=== PATIENT | male | born 1960 | race Two or more races ===

== ENCOUNTER 2024-01-25 00:22 | Inpatient (IN) | payer MEDICARE, MEDICAID ==
[~2024-01-25] VITALS: Ht 152.4 cm; Wt 77.1 kg
[2024-01-25] VITALS (19 sets, daily range): BP systolic 139–171; BP diastolic 82–111; PULSE 61–83; RESP 12–35; TEMP 36.3918–36.78072; O2SAT 94–100
[2024-01-25 01:33] LABS: BASOPHILS % 0.8 % (0.0-2.0); EOSINOPHILS % 1.7 % (0.0-5.0); HEMATOCRIT. 25.9 % (42.0-52.0); HEMOGLOBIN. 8.8 g/dL (14.0-18.0); LYMPHOCYTES % 28.4 % (20.0-50.0); MEAN CORPUSCULAR HEMOGLOBIN 32.5 pg (28.0-32.0); MEAN CORPUSCULAR HGB CONC 34.2 g/dL (31.0-37.0); MEAN PLATELET VOLUME 7.7 fl (7.4-10.4); MONOCYTES % 8.2 % (2.0-8.0); NEUTROPHILS % 60.9 % (40.0-76.0); PLATELET 126 x1000/uL (130-400); RED BLOOD CELL COUNT 2.72 mill/uL (4.7-6.1); RED CELL DISTRIBUTION WIDTH 14.4 % (11.6-14.6)
[2024-01-25 01:59] LABS: CARBON DIOXIDE 29 mEq/L (21-32); CHLORIDE 104 mEq/L (98-107); POTASSIUM 5.1 mEq/L (3.5-5.1); SODIUM 139 mEq/L (136-145)
[2024-01-25 02:00] LABS: CALCIUM 8.9 mg/dL (8.7-10.4)
[2024-01-25 02:05] LABS: GLUCOSE 92 mg/dL (70-105); UREA NITROGEN BLOOD 60 mg/dL (9-23)
[2024-01-25 02:06] LABS: TROPONIN I HIGH SENSITIVITY 44 ng/L (3.0-53)
[2024-01-25 02:16] LABS: CREATININE 12.2 mg/dL (0.6-1.3)
[2024-01-25] MEDS: ACETAMINOPHEN 325MG TABLET PO ONE (02:45)
[2024-01-25] MEDS: ONDANSETRON HCL 4MG/2ML INJ IV NR (02:50)
[2024-01-25] MEDS: LABETALOL 5MG/ML 4ML INJ IV NR (02:50)
[2024-01-25 03:05] LABS: TROPONIN I HIGH SENSITIVITY 45 ng/L (3.0-53)
[2024-01-25] MEDS ORDERED: ACETAMINOPHEN 325MG TABLET PO PRN (05:30)
[2024-01-25] MEDS ORDERED: DEXTROSE 50% WATER 50ML SYRINGE IV PRN (05:30)
[2024-01-25] MEDS ORDERED: IPRATROPIUM/ALBUTEROL 0.5-3(2.5)MG/3ML NEB HHN PRN (05:30)
[2024-01-25] MEDS ORDERED: LORAZEPAM 1MG TABLET PO PRN (05:45)
[2024-01-25] MEDS ORDERED: ETRAVIRINE 200 MG XX SCH (05:45)
[2024-01-25] MEDS: BLOOD SUGAR DIAGNOSTIC STRIP TEST SCH (07:58)
[2024-01-25] MEDS: INSULIN LISPRO 100 UNITS/ML SUBCUT SCH (08:00)
[2024-01-25] MEDS: SEVELAMER CARBONATE 800 MG TABLET PO SCH (08:22)
[2024-01-25] MEDS: HYDRALAZINE HCL 100MG TABLET PO SCH (09:00)
[2024-01-25] MEDS: ENOXAPARIN 30MG/0.3ML SYR SUBCUT SCH (09:00)
[2024-01-25] MEDS: IPRATROPIUM/ALBUTEROL 0.5-3(2.5)MG/3ML NEB HHN SCH (09:21)
[2024-01-25] MEDS: FUROSEMIDE 40MG/4ML VIAL IVP SCH (10:07)
[2024-01-25] MEDS: DIVALPROEX SODIUM 125MG SPRINKLE CAPSULE PO SCH (10:08)
[2024-01-25] MEDS: GABAPENTIN 300MG CAPSULE PO SCH (10:08)
[2024-01-25] MEDS: PAROXETINE HCL 10MG TABLET PO SCH (10:08)
[2024-01-25 10:59] LABS: IRON 28 ug/dL (65-175); TROPONIN I HIGH SENSITIVITY 41 ng/L (3.0-53)
[2024-01-25 11:00] LABS: LDL CHOLESTEROL 61 mg/dL (5-100); TRIGLYCERIDE 34 mg/dL (0-150)
[2024-01-25 11:01] LABS: ALBUMIN 3.6 g/dL (3.2-4.8)
[2024-01-25 11:02] LABS: CHOLESTEROL 174 mg/dL (<200); HDL CHOLESTEROL 87 mg/dL (>55); PHOSPHORUS 5.3 mg/dL (2.5-4.9); TOTAL IRON BINDING CAPACITY 221 ug/dl (250-425)
[2024-01-25 11:03] LABS: T4 FREE 1.18 ng/dL (0.89-1.76); THYROID STIMULATING HORMONE 1.44 uIU/mL (0.55-4.78)
[2024-01-25 11:33] LABS: BG BASE EXCESS -0.6 mmol/L (-2.0-3.0); BG CARBOXYHEMOGLOBIN 0.8 % (0.5-1.5); BG DEOXYHEMOGLOBIN 4.3 % (0.0-5.0); BG FRACTION INSPIRED OXYGEN 21; BG HCO3 ACT 23.9 mmol/L (21.0-28.0); BG METHEMOGLOBIN 0.3 % (0.5-1.5); BG OXYGEN SATURATION 95.7 % (94.0-98.0); BG OXYHEMOGLOBIN 94.6 % (94.0-98.0); BG PH 7.406 (7.350-7.450); BG SAMPLE SITE RIGHT RADIAL; BG TOTAL HEMOGLOBIN 9.1 g/dL (13.5-17.5); BG VENT MODE ROOM AIR
[2024-01-25 11:37] LABS: FOLIC ACID (FOLATE) SERUM 8.77 ng/mL (>5.38)
[2024-01-25 11:38] LABS: FERRITIN 536 ng/mL (22-322); VITAMIN B12 SERUM 641 pg/mL (211-911)
[2024-01-25 11:49] LABS: HEPATITIS B SURFACE ANTIGEN NEGATIVE (Negative)
[2024-01-25 11:51] LABS: HEPATITIS B SURFACE ANTIGEN NEGATIVE (Negative)
[2024-01-25 12:09] LABS: HEPATITIS A AB IGM NEGATIVE (Negative)
[2024-01-25 12:10] LABS: HEPATITIS B CORE AB IGM REACTIVE (Negative); HEPATITIS C AB NON REACTIVE (Neg) (Negative)
[2024-01-25 12:12] LABS: HEPATITIS C AB NON REACTIVE (Neg) (Negative)
[2024-01-25] MEDS: GUAIFENESIN 200MG/10ML SUGAR FREE UDC PO PRN (13:29)
[2024-01-25 16:57] LABS: CREATINE KINASE MB FRACTION 2.4 ng/mL (0.5-3.6)
[2024-01-25] MEDS: AZITHROMYCIN 500 MG in SODIUM CHLORIDE 0.9% 250 ML IV SCH (18:44)
[2024-01-25 21:04] LABS: CLARITY URINE TURBID (CLEAR); COLOR URINE RED (YELLOW); GLUCOSE URINE NEGATIVE (NEGATIVE); KETONES URINE NEGATIVE (NEGATIVE); LEUKOCYTE ESTERASE URINE 3+ (NEGATIVE); NITRITE URINE NEGATIVE (NEGATIVE); OCCULT BLOOD URINE 3+ (NEGATIVE); PH URINE >=9.0 (4.5-8.0); PROTEIN URINE 3+ (NEGATIVE); SPECIFIC GRAVITY URINE 1.011 (1.005-1.030); UROBILINOGEN URINE 0.2 E.U./dL (0.2-1.0)
[2024-01-25 21:16] LABS: RBC URINE TNTC /hpf (0-2); WBC URINE 15-25 /hpf (0-2)
[2024-01-25 21:17] LABS: BACTERIA URINE TRACE; SQUAMOUS EPITHELIAL CELL URINE FEW /lpf (RARE/1+)
[2024-01-25 21:22] LABS: *AMPHETAMINES SCREEN URINE NEGATIVE (NEGATIVE); *BARBITURATES SCREEN URINE NEGATIVE (NEGATIVE); *BENZODIAZEPINES SCREEN URINE NEGATIVE (NEGATIVE); *COCAINE SCREEN URINE NEGATIVE (NEGATIVE)
[2024-01-25 21:23] LABS: CANNABINOID URINE SCREEN NEGATIVE (NEGATIVE); ECSTASY MDMA SCREEN URINE NEGATIVE (NEGATIVE); METHADONE URINE SCREEN NEGATIVE (NEGATIVE); OPIATES URINE SCREEN NEGATIVE (NEGATIVE); PHENCYCLIDINE URINE SCREEN NEGATIVE (NEGATIVE)
[2024-01-26] VITALS (13 sets, daily range): BP systolic 126–167; BP diastolic 66–111; PULSE 76–96; RESP 14–28; TEMP 36.28068–37.05852; O2SAT 97–100
[2024-01-26 06:33] LABS: HEMATOCRIT 26.7 % (42.0-52.0); HEMOGLOBIN 8.9 g/dL (14.0-18.0); MEAN CORPUSCULAR HEMOGLOBIN 31.4 pg (28.0-32.0); MEAN CORPUSCULAR HGB CONC 33.3 g/dL (31.0-37.0); MEAN CORPUSCULAR VOLUME 94.4 fL (80.0-94.0); PLATELET 105 x1000/uL (130-400); RED BLOOD CELL COUNT 2.83 mill/uL (4.7-6.1); RED CELL DISTRIBUTION WIDTH 14.5 % (11.6-14.6); WHITE BLOOD COUNT 2.7 x1000/uL (4.5-11.0)
[2024-01-26 07:17] LABS: CHLORIDE 103 mEq/L (98-107); POTASSIUM 4.6 mEq/L (3.5-5.1); SODIUM 142 mEq/L (136-145)
[2024-01-26 07:19] LABS: CALCIUM 8.8 mg/dL (8.7-10.4); CARBON DIOXIDE 24 mEq/L (21-32)
[2024-01-26 07:24] LABS: GLUCOSE 97 mg/dL (70-105); UREA NITROGEN BLOOD 54 mg/dL (9-23)
[2024-01-26 07:25] LABS: ALANINE AMINOTRANSFERASE 14 IU/L (10-49)
[2024-01-26 07:26] LABS: ALBUMIN 3.8 g/dL (3.2-4.8); ASPARTATE AMINOTRANSFERASE 26 IU/L (<34); BILIRUBIN TOTAL 0.3 mg/dL (0.1-1.0); PHOSPHORUS 4.3 mg/dL (2.5-4.9); PROTEIN TOTAL 6.8 g/dL (6.0-8.3)
[2024-01-26 08:17] LABS: CREATININE 11.4 mg/dL (0.6-1.3)
[2024-01-26] MEDS: LAMIVUDINE 100 MG TABLET PO SCH (08:23)
[2024-01-26] MEDS: ETRAVIRINE 200 MG PO SCH (08:25)
[2024-01-26] MEDS: CLONIDINE 0.1MG TABLET PO PRN (19:21)
[2024-01-26] MEDS: RALTEGRAVIR 400 MG TABLET PO SCH (20:29)
[2024-01-26] MEDS: SILDENAFIL CITRATE 20MG TABLET PO SCH (20:52)
[2024-01-26] MEDS: METHYLPREDNISOLONE SOD SUCC 125MG/2ML (ACT-O-VIAL) IV NR (21:35)
[2024-01-26] MEDS: FUROSEMIDE 100MG/10ML VIAL IVP NR (21:36)
[2024-01-26 23:54] LABS: BG BASE EXCESS -1.2 mmol/L (-2.0-3.0); BG CARBOXYHEMOGLOBIN 0.4 % (0.5-1.5); BG DEOXYHEMOGLOBIN 0.9 % (0.0-5.0); BG FRACTION INSPIRED OXYGEN 35; BG HCO3 ACT 22.8 mmol/L (21.0-28.0); BG METHEMOGLOBIN 0.3 % (0.5-1.5); BG OXYGEN SATURATION 99.1 % (94.0-98.0); BG OXYHEMOGLOBIN 98.4 % (94.0-98.0); BG PH 7.431 (7.350-7.450); BG PO2 164.2 mmHg (83.0-108.0); BG SAMPLE SITE RIGHT RADIAL; BG TOTAL HEMOGLOBIN 9.1 g/dL (13.5-17.5); BG VENT MODE MASK - BIPAP
[2024-01-27] VITALS (25 sets, daily range): BP systolic 99–149; BP diastolic 58–97; PULSE 77–101; RESP 13–29; TEMP 36.00288–36.83628; O2SAT 10–100
[2024-01-27 08:33] LABS: CARBON DIOXIDE 22 mEq/L (21-32); CHLORIDE 101 mEq/L (98-107); SODIUM 137 mEq/L (136-145)
[2024-01-27 08:39] LABS: GLUCOSE 192 mg/dL (70-105); UREA NITROGEN BLOOD 73 mg/dL (9-23)
[2024-01-27 08:46] LABS: CREATININE 13.2 mg/dL (0.6-1.3); POTASSIUM 6.3 mEq/L (3.5-5.1)
[2024-01-27 08:55] LABS: BASOPHILS % 0.2 % (0.0-2.0); EOSINOPHILS % 0.1 % (0.0-5.0); HEMATOCRIT 26.2 % (42.0-52.0); HEMATOCRIT. 26.2 % (42.0-52.0); HEMOGLOBIN 8.7 g/dL (14.0-18.0); HEMOGLOBIN. 8.7 g/dL (14.0-18.0); LYMPHOCYTES % 13.1 % (20.0-50.0); MEAN CORPUSCULAR HEMOGLOBIN 31.4 pg (28.0-32.0); MEAN CORPUSCULAR HGB CONC 33.2 g/dL (31.0-37.0); MEAN CORPUSCULAR VOLUME 94.7 fL (80.0-94.0); MEAN PLATELET VOLUME 8.5 fl (7.4-10.4); MONOCYTES % 1.5 % (2.0-8.0); NEUTROPHILS % 85.1 % (40.0-76.0); PLATELET 108 x1000/uL (130-400); RED BLOOD CELL COUNT 2.77 mill/uL (4.7-6.1); RED CELL DISTRIBUTION WIDTH 14.4 % (11.6-14.6); WHITE BLOOD COUNT 2.1 x1000/uL (4.5-11.0)
[2024-01-27] MEDS ORDERED: DEXTROSE 50% WATER 50ML SYRINGE IV NR (10:23)
[2024-01-27] MEDS ORDERED: INSULIN REGULAR (HUMULIN R) 1000UNITS/10ML VIAL IV NR (10:23)
[2024-01-27] MEDS ORDERED: SODIUM BICARBONATE 8.4% 50MEQ/50ML SYR IV NR (10:23)
[2024-01-27] MEDS ORDERED: SODIUM ZIRCONIUM CYCLOSILICATE 10GM/PACKET PO NR (10:30)
[2024-01-27 16:18] LABS: POTASSIUM 4.7 mEq/L (3.5-5.1)
[2024-01-27] MEDS: SEVELAMER CARBONATE 800 MG TABLET PO SCH (21:43)
[2024-01-27] MEDS: ACETAMINOPHEN 325MG TABLET PO PRN (22:24)
[2024-01-28] VITALS (17 sets, daily range): BP systolic 121–155; BP diastolic 74–95; PULSE 82–101; RESP 13–20; TEMP 36.28068–36.6696; O2SAT 94–99
[2024-01-28 06:01] LABS: CHLORIDE 104 mEq/L (98-107); POTASSIUM 4.8 mEq/L (3.5-5.1); SODIUM 140 mEq/L (136-145)
[2024-01-28 06:02] LABS: CARBON DIOXIDE 25 mEq/L (21-32)
[2024-01-28 06:07] LABS: GLUCOSE 86 mg/dL (70-105)
[2024-01-28 06:08] LABS: UREA NITROGEN BLOOD 63 mg/dL (9-23)
[2024-01-28 06:10] LABS: PHOSPHORUS 5.1 mg/dL (2.5-4.9)
[2024-01-28 06:16] LABS: HEMOGLOBIN 8.4 g/dL (14.0-18.0); MEAN CORPUSCULAR HEMOGLOBIN 30.8 pg (28.0-32.0); MEAN CORPUSCULAR HGB CONC 32.2 g/dL (31.0-37.0); MEAN CORPUSCULAR VOLUME 95.7 fL (80.0-94.0); PLATELET 110 x1000/uL (130-400); RED BLOOD CELL COUNT 2.72 mill/uL (4.7-6.1); RED CELL DISTRIBUTION WIDTH 14.5 % (11.6-14.6); WHITE BLOOD COUNT 3.5 x1000/uL (4.5-11.0)
[2024-01-28 06:20] LABS: CREATININE 11.6 mg/dL (0.6-1.3)
[2024-01-28 09:10] LABS: ABSOLUTE LYMPHOCYTES 0.3 x10E3/uL (0.7-3.1); ABSOLUTE NEUTROPHILS 1.8 x10E3/uL (1.4-7.0); BASOPHILS 1 % (Not Estab.); EOSINOPHILS 0 % (Not Estab.); HEMATOCRIT 26.2 % (37.5-51.0); HEMOGLOBIN 8.5 g/dL (13.0-17.7); IMMATURE GRANULOCYTES 0 % (Not Estab.); LYMPHOCYTES 15 % (Not Estab.); MEAN CORPUSCULAR HEMOGLOBIN 30.5 pg (26.6-33.0); MEAN CORPUSCULAR HGB CONC. 32.4 g/dL (31.5-35.7); MEAN CORPUSCULAR VOLUME 94 fL (79-97); MONOCYTES 2 % (Not Estab.); NEUTROPHILS 82 % (Not Estab.); PLATELETS 111 x10E3/uL (150-450); RBC 2.79 x10E6/uL (4.14-5.80); RED CELL DISTRIBUTION WIDTH 13.1 % (11.6-15.4); WBC 2.2 x10E3/uL (3.4-10.8)
[2024-01-28] MEDS: CEFTRIAXONE 1GM/50ML 50 ML IV SCH (10:36)
[2024-01-28] MEDS: DOCUSATE SODIUM 100MG CAPSULE PO PRN (12:43)
[2024-01-28 13:06] LABS: % CD 3 POS. LYMPHOCYTES 43.9 % (57.5-86.2); % CD 4 POS. LYMPHOCYTES 25.4 % (30.8-58.5); % CD 8 POS. LYMPH 18.1 % (12.0-35.5); ABSOLUTE CD 3 132 /uL (622-2402); ABSOLUTE CD 4 HELPER 76 /uL (359-1519); ABSOLUTE CD 8 SUPPRESSOR 54 /uL (109-897)
[2024-01-28] MEDS ORDERED: SILDENAFIL CITRATE 20MG TABLET PO SCH (14:00)
[2024-01-28] MEDS: LOSARTAN 25 MG TABLET PO SCH (15:40)
[2024-01-28 21:12] LABS: CLARITY URINE TURBID (CLEAR); COLOR URINE RED (YELLOW); GLUCOSE URINE NEGATIVE (NEGATIVE); KETONES URINE NEGATIVE (NEGATIVE); LEUKOCYTE ESTERASE URINE 2+ (NEGATIVE); NITRITE URINE NEGATIVE (NEGATIVE); OCCULT BLOOD URINE 3+ (NEGATIVE); PROTEIN URINE 3+ (NEGATIVE); SPECIFIC GRAVITY URINE 1.014 (1.005-1.030); UROBILINOGEN URINE 0.2 E.U./dL (0.2-1.0)
[2024-01-28 21:17] LABS: BACTERIA URINE 1+; RBC URINE TNTC /hpf (0-2); SQUAMOUS EPITHELIAL CELL URINE FEW /lpf (RARE/1+)
[2024-01-28] MEDS: AZITHROMYCIN 500 MG TABLET PO SCH (21:37)
[2024-01-28] MEDS: CARVEDILOL 3.125 MG TABLET PO SCH (21:37)
[2024-01-29] VITALS (27 sets, daily range): BP systolic 107–151; BP diastolic 73–115; PULSE 69–98; RESP 12–22; TEMP 35.78064–37.11408; O2SAT 95–99
[2024-01-29 06:13] LABS: POTASSIUM 5.7 mEq/L (3.5-5.1)
[2024-01-29 06:14] LABS: CALCIUM 9.1 mg/dL (8.7-10.4)
[2024-01-29 06:39] LABS: CREATININE 12.3 mg/dL (0.6-1.3)
[2024-01-29 07:20] LABS: HEMATOCRIT 28.6 % (42.0-52.0); HEMOGLOBIN 9.5 g/dL (14.0-18.0); MEAN CORPUSCULAR HEMOGLOBIN 31.7 pg (28.0-32.0); MEAN CORPUSCULAR HGB CONC 33.3 g/dL (31.0-37.0); MEAN CORPUSCULAR VOLUME 95.3 fL (80.0-94.0); PLATELET 108 x1000/uL (130-400); RED CELL DISTRIBUTION WIDTH 14.4 % (11.6-14.6)
[2024-01-29 10:24] LABS: BG BASE EXCESS -2.6 mmol/L (-2.0-3.0); BG CARBOXYHEMOGLOBIN 0.6 % (0.5-1.5); BG DEOXYHEMOGLOBIN 1.2 % (0.0-5.0); BG FRACTION INSPIRED OXYGEN 30; BG HCO3 ACT 21.9 mmol/L (21.0-28.0); BG METHEMOGLOBIN 0.3 % (0.5-1.5); BG OXYGEN SATURATION 98.8 % (94.0-98.0); BG OXYHEMOGLOBIN 97.9 % (94.0-98.0); BG PCO2 36.1 mmHg (35.0-48.0); BG PO2 142.9 mmHg (83.0-108.0); BG SAMPLE SITE RIGHT RADIAL; BG TOTAL HEMOGLOBIN 8.8 g/dL (13.5-17.5); BG VENT MODE MASK - BIPAP
[2024-01-29] MEDS: SODIUM ZIRCONIUM CYCLOSILICATE 10GM/PACKET PO NR (11:20)
[2024-01-29] MEDS: AZITHROMYCIN 500 MG TABLET PO SCH (19:03)
[2024-01-30] VITALS (22 sets, daily range): BP systolic 98–158; BP diastolic 72–97; PULSE 67–97; RESP 11–26; TEMP 36.28068–36.72516; O2SAT 91–98
[2024-01-30 06:09] LABS: POTASSIUM 5.8 mEq/L (3.5-5.1)
[2024-01-30 06:10] LABS: CALCIUM 8.5 mg/dL (8.7-10.4)
[2024-01-30 06:18] LABS: PHOSPHORUS 5.6 mg/dL (2.5-4.9)
[2024-01-30 06:19] LABS: HEMOGLOBIN 8.4 g/dL (14.0-18.0); MEAN CORPUSCULAR HEMOGLOBIN 30.7 pg (28.0-32.0); MEAN CORPUSCULAR HGB CONC 32.4 g/dL (31.0-37.0); MEAN CORPUSCULAR VOLUME 94.7 fL (80.0-94.0); PLATELET 104 x1000/uL (130-400); RED BLOOD CELL COUNT 2.75 mill/uL (4.7-6.1); RED CELL DISTRIBUTION WIDTH 14.1 % (11.6-14.6); WHITE BLOOD COUNT 2.6 x1000/uL (4.5-11.0)
[2024-01-30 06:32] LABS: CREATININE 9.5 mg/dL (0.6-1.3)
[2024-01-30] MEDS: ONDANSETRON HCL 4MG/2ML INJ IV PRN (07:30)
[2024-01-30] MEDS: FUROSEMIDE 40MG TABLET PO SCH (08:41)
[2024-01-30] MEDS: ATOVAQUONE 750 MG/5 ML UDC PO SCH (08:44)
[2024-01-30] MEDS: SODIUM ZIRCONIUM CYCLOSILICATE 10GM/PACKET PO NR (10:11)
[2024-01-30] MEDS: GABAPENTIN 300MG CAPSULE PO NR (10:12)
[2024-01-30] MEDS: ALBUTEROL (0.083%) 2.5MG/3ML NEB HHN NR (10:45)
[2024-01-30 22:07] LABS: POTASSIUM 4.6 mEq/L (3.5-5.1)
[2024-01-30 22:09] LABS: CALCIUM 8.6 mg/dL (8.7-10.4)
[2024-01-30 22:16] LABS: CREATININE 8.2 mg/dL (0.6-1.3)
[2024-01-31] VITALS (11 sets, daily range): BP systolic 131–174; BP diastolic 66–96; PULSE 65–82; RESP 12–24; TEMP 36.44736–37.00296; O2SAT 93–100
[2024-01-31] MEDS ORDERED: DIPHENHYDRAMINE 50MG CAPSULE PO NR
[2024-01-31] MEDS: DIPHENHYDRAMINE 25MG CAPSULE PO NR (00:23)
[2024-01-31 07:35] LABS: HEMATOCRIT 25.2 % (42.0-52.0); HEMOGLOBIN 8.3 g/dL (14.0-18.0); MEAN CORPUSCULAR HEMOGLOBIN 30.9 pg (28.0-32.0); MEAN CORPUSCULAR VOLUME 93.6 fL (80.0-94.0); PLATELET 93 x1000/uL (130-400); RED BLOOD CELL COUNT 2.69 mill/uL (4.7-6.1); RED CELL DISTRIBUTION WIDTH 13.6 % (11.6-14.6); WHITE BLOOD COUNT 2.7 x1000/uL (4.5-11.0)
[2024-01-31 07:44] LABS: POTASSIUM 4.5 mEq/L (3.5-5.1)
[2024-01-31 07:45] LABS: CALCIUM 8.8 mg/dL (8.7-10.4)
[2024-01-31] MEDS: LOSARTAN 100 MG TABLET PO SCH (08:00)
[2024-01-31 08:04] LABS: PROTHROMBIN TIME 10.9 sec (9.6-11.0)
[2024-01-31] MEDS ORDERED: LIDOCAINE HCL 1% 10 MG/ML 10ML VIAL ONE (10:16)
[2024-01-31] MEDS ORDERED: IODIXANOL 320MG/ML 100 ML BOTTLE IV ONE (10:16)
[2024-01-31] MEDS ORDERED: HEPARIN 1000 UNITS/ML 10ML ONE (10:16)
[2024-01-31] MEDS ORDERED: FENTANYL CITRATE/PF 50MCG/ML 2ML VIAL ONE (10:39)
[2024-01-31] MEDS ORDERED: MIDAZOLAM HCL 2 MG/2 ML VIAL ONE (10:39)
[2024-01-31] MEDS ORDERED: ATROPINE SULFATE 1MG/10ML SYR IV PRN (12:00)
[2024-01-31] MEDS ORDERED: HYDR100T11 PO (12:27)
[2024-01-31] MEDS ORDERED: FURO80TA87 PO (12:27)
[2024-01-31] MEDS ORDERED: PARO10TA74 PO (12:27)
[2024-01-31] MEDS ORDERED: COR3 PO (12:27)
[2024-01-31] MEDS ORDERED: LOSA100T33 PO (12:27)
[2024-01-31] MEDS: METHYLPREDNISOLONE SOD SUCC 125MG/2ML (ACT-O-VIAL) IV NR (16:24)
[2024-02-01] VITALS (16 sets, daily range): BP systolic 145–188; BP diastolic 74–98; PULSE 65–82; RESP 12–20; TEMP 36.16956–36.6696; O2SAT 96–100
[2024-02-01] MEDS ORDERED: SILD20TA13 PO (12:44)
[2024-02-01 16:40] LABS: BASOPHILS % 0.8 % (0.0-2.0); EOSINOPHILS % 2.5 % (0.0-5.0); HEMATOCRIT. 25.6 % (42.0-52.0); HEMOGLOBIN. 8.5 g/dL (14.0-18.0); LYMPHOCYTES % 32.1 % (20.0-50.0); MEAN CORPUSCULAR HEMOGLOBIN 31.1 pg (28.0-32.0); MEAN CORPUSCULAR HGB CONC 33.4 g/dL (31.0-37.0); MEAN CORPUSCULAR VOLUME 93.1 fL (80.0-94.0); MEAN PLATELET VOLUME 8.4 fl (7.4-10.4); MONOCYTES % 8.3 % (2.0-8.0); NEUTROPHILS % 56.3 % (40.0-76.0); PLATELET 97 x1000/uL (130-400); RED BLOOD CELL COUNT 2.75 mill/uL (4.7-6.1); RED CELL DISTRIBUTION WIDTH 13.7 % (11.6-14.6); WHITE BLOOD COUNT 2.7 x1000/uL (4.5-11.0)
[2024-02-01 16:46] LABS: POTASSIUM 3.9 mEq/L (3.5-5.1)
[2024-02-01 16:48] LABS: CALCIUM 8.7 mg/dL (8.7-10.4)
[2024-02-01 17:07] LABS: CREATININE 7.4 mg/dL (0.6-1.3)
== END 2024-02-01 19:30 | disposition home or self-care (01) | DRG 286 ==
LOC: ER 00:22 → 5EST 03:21 → 7EST 01-26 16:30 → 5EST 01-27 01:42
PROVIDERS: ADMIT Internal Medicine; ATTEND Internal Medicine
PROC: 5A09357 Assistance with Respiratory Ventilation, Less than 24 Consecutive Hours, Continuous Positive Airway Pressure (ICD-10-PCS; principal; 2024-01-25)
PROC: 5A1D70Z Performance of Urinary Filtration, Intermittent, Less than 6 Hours Per Day (ICD-10-PCS; 2024-01-25)
PROC: 5A09357 Assistance with Respiratory Ventilation, Less than 24 Consecutive Hours, Continuous Positive Airway Pressure (ICD-10-PCS; 2024-01-26)
PROC: 5A09357 Assistance with Respiratory Ventilation, Less than 24 Consecutive Hours, Continuous Positive Airway Pressure (ICD-10-PCS; 2024-01-27)
PROC: 5A1D70Z Performance of Urinary Filtration, Intermittent, Less than 6 Hours Per Day (ICD-10-PCS; 2024-01-27)
PROC: 5A09357 Assistance with Respiratory Ventilation, Less than 24 Consecutive Hours, Continuous Positive Airway Pressure (ICD-10-PCS; 2024-01-29)
PROC: 5A1D70Z Performance of Urinary Filtration, Intermittent, Less than 6 Hours Per Day (ICD-10-PCS; 2024-01-29)
PROC: 5A0935A Assistance with Respiratory Ventilation, Less than 24 Consecutive Hours, High Flow/Velocity Cannula (ICD-10-PCS; 2024-01-30)
PROC: 5A1D70Z Performance of Urinary Filtration, Intermittent, Less than 6 Hours Per Day (ICD-10-PCS; 2024-01-30)
PROC: 4A023N7 Measurement of Cardiac Sampling and Pressure, Left Heart, Percutaneous Approach (ICD-10-PCS; 2024-01-31)
PROC: B2111ZZ Fluoroscopy of Multiple Coronary Arteries using Low Osmolar Contrast (ICD-10-PCS; 2024-01-31)
PROC: B2151ZZ Fluoroscopy of Left Heart using Low Osmolar Contrast (ICD-10-PCS; 2024-01-31)
PROC: 5A09357 Assistance with Respiratory Ventilation, Less than 24 Consecutive Hours, Continuous Positive Airway Pressure (ICD-10-PCS; 2024-01-31)
PROC: 5A1D70Z Performance of Urinary Filtration, Intermittent, Less than 6 Hours Per Day (ICD-10-PCS; 2024-02-01)
DX: I13.2 Hypertensive heart and chronic kidney disease with heart failure and with stage 5 chronic kidney disease, or end stage renal disease (principal); I50.21 Acute systolic (congestive) heart failure; J96.01 Acute respiratory failure with hypoxia; N18.6 End stage renal disease; B20 Human immunodeficiency virus [HIV] disease; N39.0 Urinary tract infection, site not specified; B19.10 Unspecified viral hepatitis B without hepatic coma; J90 Pleural effusion, not elsewhere classified; I42.9 Cardiomyopathy, unspecified; G40.909 Epilepsy, unspecified, not intractable, without status epilepticus; E87.5 Hyperkalemia; I27.20 Pulmonary hypertension, unspecified; K76.0 Fatty (change of) liver, not elsewhere classified; E87.70 Fluid overload, unspecified; D64.9 Anemia, unspecified; G62.9 Polyneuropathy, unspecified; F17.200 Nicotine dependence, unspecified, uncomplicated; Z88.5 Allergy status to narcotic agent; Z99.2 Dependence on renal dialysis; Z91.158 Patient's noncompliance with renal dialysis for other reason; Z79.899 Other long term (current) drug therapy
CPT/HCPCS: 36415; 36600; 71045; 76705; 80048; 80053; 80061; 80305; 81003; 82040; 82375; 82553; 82607; 82728; 82746; 82805; 82962; 83036; 83540; 83550; 83605; 83735; 83880; 84100; 84132; 84145; 84439; 84443; 84484; 85025; 85027; 85379; 86359; 86360; 86705; 86706; 86709; 87340; 87517; 90935; 93005; 93306; 93458; 93970; 94070; 94618; 94640; 94660; 97162; 97166; 98960; 99285; C1769; C1887; C1893; J0456; J0696; J1644; J1650; J1815; J1940; J2250; J2405; J2919; J3010; J3490; J7050; Q0163; Q9967

== ENCOUNTER 2024-02-28 02:38 | Inpatient (IN) | payer MEDICARE, MEDICAID ==
[~2024-02-28] VITALS: Ht 172.7 cm; Wt 68.5 kg
[2024-02-28] VITALS (12 sets, daily range): BP systolic 127–156; BP diastolic 62–98; PULSE 48–98; RESP 14–20; TEMP 36.3918–36.78072; O2SAT 98–100
[~2024-02-28 02:38] MED LIST: COR3 PO; FURO80TA87 PO; HYDR100T11 PO; LOSA100T33 PO; PARO10TA74 PO; SILD20TA13 PO
[2024-02-28 03:50] LABS: EOSINOPHILS % 1.8 % (0.0-5.0); HEMATOCRIT. 28.6 % (42.0-52.0); HEMOGLOBIN. 9.5 g/dL (14.0-18.0); LYMPHOCYTES % 22.2 % (20.0-50.0); MEAN CORPUSCULAR HEMOGLOBIN 31.6 pg (28.0-32.0); MEAN CORPUSCULAR HGB CONC 33.3 g/dL (31.0-37.0); MEAN CORPUSCULAR VOLUME 94.9 fL (80.0-94.0); MEAN PLATELET VOLUME 9.4 fl (7.4-10.4); MONOCYTES % 6.2 % (2.0-8.0); NEUTROPHILS % 68.8 % (40.0-76.0); PLATELET 103 x1000/uL (130-400); RED BLOOD CELL COUNT 3.01 mill/uL (4.7-6.1); RED CELL DISTRIBUTION WIDTH 16.1 % (11.6-14.6); WHITE BLOOD COUNT 4.9 x1000/uL (4.5-11.0)
[2024-02-28 03:57] LABS: CHLORIDE 105 mEq/L (98-107); POTASSIUM 6.1 mEq/L (3.5-5.1); SODIUM 141 mEq/L (136-145)
[2024-02-28 03:58] LABS: CALCIUM 8.5 mg/dL (8.7-10.4); CARBON DIOXIDE 21 mEq/L (21-32)
[2024-02-28 04:03] LABS: GLUCOSE 95 mg/dL (70-105); UREA NITROGEN BLOOD 90 mg/dL (9-23)
[2024-02-28 04:07] LABS: TROPONIN I HIGH SENSITIVITY 25 ng/L (3.0-53)
[2024-02-28 04:15] LABS: CREATININE 15.7 mg/dL (0.6-1.3)
[2024-02-28 04:16] LABS: ETHANOL BLOOD < 10 mg/dL (<10)
[2024-02-28] MEDS ORDERED: ACETAMINOPHEN 325MG TABLET PO PRN (04:30)
[2024-02-28] MEDS ORDERED: ONDANSETRON HCL 4MG/2ML INJ IV PRN (04:30)
[2024-02-28] MEDS ORDERED: MAGNESIUM/ALUMINUM HYDROXIDE/SIMETHICONE 30ML UDC PO PRN (04:30)
[2024-02-28] MEDS ORDERED: DOCUSATE SODIUM 100MG CAPSULE PO PRN (04:30)
[2024-02-28] MEDS: SODIUM BICARBONATE 8.4% 50MEQ/50ML SYR IV ONE (04:31)
[2024-02-28] MEDS: DEXTROSE 50% WATER 50ML SYRINGE IV ONE (04:31)
[2024-02-28] MEDS: SODIUM ZIRCONIUM CYCLOSILICATE 10GM/PACKET PO ONE (04:34)
[2024-02-28] MEDS: FUROSEMIDE 40MG/4ML VIAL IV NR (04:34)
[2024-02-28] MEDS: FUROSEMIDE 100MG/10ML VIAL IV STA (04:36)
[2024-02-28] MEDS: CALCIUM GLUCONATE 100MG/ML 10ML VIAL IV ONE (04:37)
[2024-02-28] MEDS: INSULIN REGULAR (HUMULIN R) 1000UNITS/10ML VIAL IV ONE (04:37)
[2024-02-28 06:04] LABS: PARTIAL THROMBOPLASTIN TIME 26.6 sec (23.4-31.0)
[2024-02-28 06:27] LABS: POTASSIUM 5.3 mEq/L (3.5-5.1)
[2024-02-28 08:15] LABS: HEPATITIS B SURFACE ANTIGEN NEGATIVE (Negative)
[2024-02-28] MEDS: PANTOPRAZOLE 40MG DR TABLET PO SCH (08:18)
[2024-02-28 08:36] LABS: HEPATITIS A AB IGM NEGATIVE (Negative); HEPATITIS B CORE AB IGM REACTIVE (Negative)
[2024-02-28 08:37] LABS: HEPATITIS C AB NON REACTIVE (Neg) (Negative)
[2024-02-28] MEDS: ENOXAPARIN 30MG/0.3ML SYR SUBCUT SCH (09:00)
[2024-02-28 11:40] LABS: PHOSPHORUS 6.1 mg/dL (2.5-4.9)
[2024-02-28] MEDS: CLONIDINE 0.1MG TABLET PO PRN (18:56)
[2024-02-28] MEDS: LOSARTAN 100 MG TABLET PO SCH (19:15)
[2024-02-28] MEDS: HYDRALAZINE HCL 100MG TABLET PO SCH (19:15)
[2024-02-28] MEDS: CARVEDILOL 3.125 MG TABLET PO SCH (19:15)
[2024-02-29] VITALS (11 sets, daily range): BP systolic 121–155; BP diastolic 60–84; PULSE 60–78; RESP 16–20; TEMP 36.3918–36.78072; O2SAT 96–100
[2024-02-29] MEDS: IPRATROPIUM/ALBUTEROL 0.5-3(2.5)MG/3ML NEB HHN PRN (02:58)
[2024-02-29] MEDS: GUAIFENESIN 200MG/10ML SUGAR FREE UDC PO PRN (06:28)
[2024-02-29] MEDS: ACETAMINOPHEN 325MG TABLET PO PRN (06:29)
[2024-02-29 12:28] LABS: BASOPHILS % 0.8 % (0.0-2.0); EOSINOPHILS % 1.9 % (0.0-5.0); HEMATOCRIT. 27.8 % (42.0-52.0); HEMOGLOBIN. 9.3 g/dL (14.0-18.0); LYMPHOCYTES % 26.7 % (20.0-50.0); MEAN CORPUSCULAR HEMOGLOBIN 31.5 pg (28.0-32.0); MEAN CORPUSCULAR HGB CONC 33.5 g/dL (31.0-37.0); MEAN CORPUSCULAR VOLUME 94.3 fL (80.0-94.0); MEAN PLATELET VOLUME 8.4 fl (7.4-10.4); MONOCYTES % 8.5 % (2.0-8.0); NEUTROPHILS % 62.1 % (40.0-76.0); PLATELET 104 x1000/uL (130-400); RED BLOOD CELL COUNT 2.95 mill/uL (4.7-6.1); RED CELL DISTRIBUTION WIDTH 15.8 % (11.6-14.6); WHITE BLOOD COUNT 2.5 x1000/uL (4.5-11.0)
[2024-02-29 12:34] LABS: POTASSIUM 3.5 mEq/L (3.5-5.1)
[2024-02-29 12:35] LABS: CALCIUM 8.5 mg/dL (8.7-10.4)
[2024-02-29 12:43] LABS: CREATININE 7.5 mg/dL (0.6-1.3)
[2024-02-29] MEDS: SEVELAMER CARBONATE 800 MG TABLET PO SCH (13:19)
[2024-02-29] MEDS ORDERED: ETRA200T PO (13:40)
[2024-02-29] MEDS ORDERED: METO100T16 PO (13:42)
[2024-02-29] MEDS ORDERED: RALT400T PO (13:42)
[2024-02-29] MEDS ORDERED: FOLI0.8T23 MT (13:42)
[2024-02-29] MEDS ORDERED: *PATIENT'S OWN MEDICATION STORAGE XX SCH (16:30)
[2024-02-29 17:28] LABS: *AMPHETAMINES SCREEN URINE NEGATIVE (NEGATIVE); *BARBITURATES SCREEN URINE NEGATIVE (NEGATIVE); *BENZODIAZEPINES SCREEN URINE NEGATIVE (NEGATIVE); *COCAINE SCREEN URINE NEGATIVE (NEGATIVE)
[2024-02-29 17:29] LABS: CANNABINOID URINE SCREEN NEGATIVE (NEGATIVE); ECSTASY MDMA SCREEN URINE NEGATIVE (NEGATIVE); METHADONE URINE SCREEN NEGATIVE (NEGATIVE); OPIATES URINE SCREEN NEGATIVE (NEGATIVE); PHENCYCLIDINE URINE SCREEN NEGATIVE (NEGATIVE)
[2024-02-29] MEDS: ETRAVIRINE 200 MG PO SCH (21:01)
[2024-02-29] MEDS ORDERED: LAMI150T23 MT (21:12)
[2024-02-29] MEDS ORDERED: LAMIVUDINE 150MG TABLET PO SCH (21:30)
[2024-02-29] MEDS: FOLIC ACID/VITAMIN B COMP W-C TABLET PO SCH (22:26)
[2024-02-29] MEDS: LAMIVUDINE 150 MG PO SCH (23:49)
[2024-03-01] VITALS: BP 130/64; PULSE 72; RESP 18; TEMP 36.72516; O2SAT 98
[2024-03-01 04:00] VITALS: BP 133/77; PULSE 81; RESP 18; TEMP 36.78072; O2SAT 96
[2024-03-01 08:00] VITALS: BP 144/91; PULSE 70; RESP 18; TEMP 36.3918; O2SAT 98
[2024-03-01 09:20] LABS: BASOPHILS % 0.4 % (0.0-2.0); EOSINOPHILS % 2.6 % (0.0-5.0); HEMATOCRIT. 29.4 % (42.0-52.0); HEMOGLOBIN. 9.7 g/dL (14.0-18.0); MEAN CORPUSCULAR HEMOGLOBIN 30.8 pg (28.0-32.0); MEAN CORPUSCULAR HGB CONC 32.9 g/dL (31.0-37.0); MEAN CORPUSCULAR VOLUME 93.7 fL (80.0-94.0); MEAN PLATELET VOLUME 8.7 fl (7.4-10.4); MONOCYTES % 9.6 % (2.0-8.0); NEUTROPHILS % 56.4 % (40.0-76.0); PLATELET 112 x1000/uL (130-400); RED BLOOD CELL COUNT 3.14 mill/uL (4.7-6.1); RED CELL DISTRIBUTION WIDTH 16.6 % (11.6-14.6); WHITE BLOOD COUNT 3.2 x1000/uL (4.5-11.0)
[2024-03-01 09:55] LABS: CALCIUM 9.1 mg/dL (8.7-10.4)
[2024-03-01 10:27] LABS: CREATININE 12.6 mg/dL (0.6-1.3)
[2024-03-01 12:00] VITALS: BP 157/98; PULSE 87; RESP 18; TEMP 36.28068; O2SAT 98
[2024-03-01 12:24] VITALS: BP 157/98; PULSE 87; TEMP 97.3; O2SAT 98
== END 2024-03-01 13:30 | disposition home health service (06) | DRG 640 ==
LOC: ER 02:38 → EDBEDREQ 04:27 → EDBEDREQSVC 04:27 → EDBEDREQTM 04:27 → EDBEDREQSVC 13:06 → 7EST 18:01
PROVIDERS: ADMIT Internal Medicine; ATTEND Internal Medicine
PROC: 5A1D70Z Performance of Urinary Filtration, Intermittent, Less than 6 Hours Per Day (ICD-10-PCS; principal; 2024-02-28)
PROC: 5A1D70Z Performance of Urinary Filtration, Intermittent, Less than 6 Hours Per Day (ICD-10-PCS; 2024-02-29)
DX: E87.5 Hyperkalemia (principal); I50.21 Acute systolic (congestive) heart failure; J96.01 Acute respiratory failure with hypoxia; N18.6 End stage renal disease; I13.2 Hypertensive heart and chronic kidney disease with heart failure and with stage 5 chronic kidney disease, or end stage renal disease; J84.9 Interstitial pulmonary disease, unspecified; E87.20 Acidosis, unspecified; D63.1 Anemia in chronic kidney disease; E83.39 Other disorders of phosphorus metabolism; G40.909 Epilepsy, unspecified, not intractable, without status epilepticus; Z99.2 Dependence on renal dialysis; Z88.5 Allergy status to narcotic agent
CPT/HCPCS: 36415; 71045; 80048; 80305; 80320; 83735; 83880; 84100; 84132; 84484; 85025; 86705; 86709; 86850; 86900; 87340; 90935; 93005; 94070; 94640; 94660; 99285; A4606; J0610; J1650; J1815; J1940; J3490; G0480